=== PATIENT | male | born 2000 | race African-American/Black ===

== ENCOUNTER 2020-07-10 16:15 | Observation (INO) | payer OTHER ==
[2020-07-10 16:55] LABS: ABSOLUTE BASOPHILS # (AUTO) 0.1 10^3/uL (0.0-0.2); ABSOLUTE EOSINOPHILS # (AUTO) 0.1 10^3/uL (0.0-0.6); ABSOLUTE LYMPHOCYTES (AUTO) 2.8 10^3/uL (0.5-4.7); ABSOLUTE MONOCYTES (AUTO) 0.4 10^3/uL (0.1-1.4); ABSOLUTE NEUT (AUTO) 2.7 10^3/uL (1.7-8.2); BASOPHILS % (AUTO) 1.7 % (0-2); EOSINOPHILS % (AUTO) 1.6 % (0-6); HEMATOCRIT 40.2 % (37.9-51.0); HEMOGLOBIN 13.1 g/dL (13.5-17.0); LYMPHOCYTES % (AUTO) 45.3 % (13-45); MEAN CORPUSCULAR HEMOGLOBIN 26.6 pg (27.0-33.4); MEAN CORPUSCULAR HGB CONC 32.7 g/dL (32.0-36.0); MEAN CORPUSCULAR VOLUME 81 fl (80-97); MONOCYTES % (AUTO) 7.3 % (3-13); PLATELET COUNT 257 10^3/uL (150-450); RED BLOOD COUNT 4.94 10^6/uL (4.35-5.55); RED CELL DISTRIBUTION WIDTH 13.5 % (11.5-14.0); SEGMENTED NEUTROPHILS % (AUTO) 44.1 % (42-78); TOTAL CELLS COUNTED % (AUTO) 100 %; WHITE BLOOD COUNT 6.1 10^3/uL (4.0-10.5)
[2020-07-10] MEDS ORDERED: NORMAL SALINE 1000 ML 1,000 ML IV ONE (16:55)
--- NOTE | 2020-07-10 16:58 | ER Document Report ---
ED General - General Chief Complaint: Palpitations Stated Complaint: PALPITATIONS Primary Care Provider: AMILCAR ROOT MD [COMMUNITY BASED STAFF] - Follow up as needed Mode of Arrival: Ambulatory Information source: Patient, Relative Notes: Patient is a 19-year-old male presenting to the emergency department chief complaint of palpitations/racing heart. Patient states about a week or so ago he did a double shot of espresso since that point in time he has had palpitations and tachycardia worse today. Patient denies drugs alcohol or tobacco. Patient denies travel history trauma history or obvious sick contacts. At this time patient denies nausea vomiting or diarrhea there is no shortness of breath. Grandmother at bedside states no one in the family has heart issues. TRAVEL OUTSIDE OF THE [place] IN LAST 30 DAYS: No - HPI Onset: Last week Onset/Duration: Persistent, Worse Quality of pain: Achy Severity: Mild Pain Level: 1 Associated symptoms: None Exacerbated by: Denies Relieved by: Denies Similar symptoms previously: Yes Recently seen / treated by doctor: No - Related Data Allergies/Adverse Reactions: No Known Allergies Allergy (Verified 07/10/20 17:19) Past Medical History - General Information source: Patient, Relative - Social History Smoking Status: Unknown if Ever Smoked Chew tobacco use (# tins/day): No Frequency of alcohol use: Rare Drug Abuse: None Lives with: Family Family History: None Patient has suicidal ideation: No Patient has homicidal ideation: No - Medical History Medical History: Negative Surgical Hx: Negative Review of Systems - Review of Systems Notes: REVIEW OF SYSTEMS: CONSTITUTIONAL : Denies fever, chills, or sweats. Denies recent illness. EENT: Denies eye, ear, throat, or mouth pain or symptoms. Denies nasal or sinus congestion. CARDIOVASCULAR: Per HPI RESPIRATORY: Denies cough, cold, or chest congestion. Denies shortness of breath, difficulty breathing, or wheezing. GASTROINTESTINAL: Denies abdominal pain. Denies nausea, vomiting, or diarrhea. Denies constipation. GENITOURINARY: Denies difficulty urinating, painful urination, burning, frequency, or blood in urine. MUSCULOSKELETAL: Denies neck or back pain or joint pain or swelling. SKIN: Denies rash or skin lesions. HEMATOLOGIC : Denies easy bruising or bleeding. NEUROLOGICAL: Denies altered mental status or loss of consciousness. Denies headache. Denies weakness or paralysis or loss of use of either side. Denies problems with gait or speech. Denies sensory or motor loss. PSYCHIATRIC: Denies suicidal or homicidal ideations 10 Systems are negative unless otherwise specified above Physical Exam - Vital signs Vitals: Temp Pulse Resp BP Pulse Ox 98.2 F 143 H 16 137/62 H 99 07/10/20 16:28 07/10/20 16:28 07/10/20 16:28 07/10/20 16:28 07/10/20 16:28 - Notes Notes: PHYSICAL EXAMINATION: GENERAL: Well-appearing, well-nourished and in no acute distress. HEAD: Atraumatic, normocephalic. EYES: Pupils equal round and reactive to light, extraocular movements intact, sclera anicteric, conjunctiva are normal. ENT: nares patent, oropharynx clear without exudates. Moist mucous membranes. NECK: Normal range of motion, supple without lymphadenopathy, no appreciable JVD LUNGS: Lungs clear to auscultation bilaterally and equal. No wheezes rales or rhonchi. HEART: Tachycardic, rate and rhythm without murmurs ABDOMEN: Soft, nontender, normal bowel sounds. No guarding, no rebound. No masses appreciated. EXTREMITIES: Active full range of motion, no pitting or edema. No cyanosis. 2+ pulses x4 no calf pain no Homans sign NEUROLOGICAL: No focal neurological deficits. Moves all extremities spontaneously and on command. SKIN: Warm, Dry, and intact. Normal turgor, no rashes or lesions noted. Course - Re-evaluation Re-evalutation: 07/10/20 20:13 Patient has been maintained on a advanced research programs director the entire time in the emergency department. Patient has remained stable without any change in cardiac activity or condition. After reviewing EKG chest x-ray laboratory studies I did discuss the patient's case and condition with cardiology on-call and the recommendation was to administer adenosine because of what appeared to be atrial flutter on the patient's second EKG. After giving the initial dose of 6 mg IV rapid push there was very little change however second bolus of adenosine 6 mg rapid IV push did elicit a temporary slowdown where A. fib/a flutter was much m ore visible. After speaking with cardiology again the request is metoprolol 25 mg p.o. every 6 hours and Eliquis 5 mg p.o. twice daily. The patient will be admitted under the hospitalist service and will be evaluated for possible cardioversion by cardiology in the morning. I did explain this at great length with the patient he is understanding and agreeable. I spoke with the hospitalist sharepoint solutions architect and he is agreeable with admission and will see the patient once he reaches the floor. - Vital Signs Vital signs: Temp Pulse Resp BP Pulse Ox 98.2 F 143 H 18 109/59 L 100 07/10/20 17:00 07/10/20 16:28 07/10/20 19:00 07/10/20 18:00 07/10/20 18:01 - Laboratory Result Diagrams: 07/10/20 16:41 07/10/20 16:41 Laboratory results interpreted by me: 07/10/20 07/10/20 07/10/20 16:41 16:41 18:38 Hgb 13.1 L MCH 26.6 L Lymph % (Auto) 45.3 H BUN 22 H Creatine Kinase 413 H Urine Urobilinogen 2.0 H - Diagnostic Test Radiology reviewed: Reports reviewed - EKG Interpretation by [facility] EKG shows normal: Sinus rhythm Rate: Tachycardia Rhythm: NSR When compared to previous EKG there are: Previous EKG unavailable Additional EKG results interpreted by me: 07/10/20 20:16 Second EKG demonstrates a rate of 137 bpm there is question whether this is SVT or atrial flutter. Next EKG after 2 boluses of 6 mg each of adenosine demonstrates atrial fibrillation rate of 117 bpm however this does appear more like atrial flutter with a variable conduction. Critical Care Note - Critical Care Note Total time excluding time spent on procedures (mins): 40 Comments: Please allow 45 minutes of critical care time spent obtaining history from patient or surrogate, discussions with consultants, development of treatment plan with patient or surrogate, evaluation of patient's response to treatment, examination of patient. This also includes ordering and reviewing laboratory, EKG and / or radiologic studies, performing and reassessing treatments and interventions as well as reviewing previous visits and old charts. This is exclusive of separately billable procedures. Discharge - Discharge Clinical Impression: Atrial flutter Qualifiers: Atrial flutter type: unspecified Qualified Code(s): I48.92 - Unspecified atrial flutter Condition: Stable Disposition: ADMITTED OBSERVATION Admitting Provider: Greg (Hospitalist) Unit Admitted: Telemetry Referrals: AMILCAR ROOT MD [COMMUNITY BASED STAFF] - Follow up as needed
--- NOTE | 2020-07-10 17:00 | RADIOLOGY REPORT (SQ) ---
EXAM DESCRIPTION: CHEST SINGLE VIEW IMAGES COMPLETED DATE/TIME: 07/10/2020 4:52 pm REASON FOR STUDY: palpations COMPARISON: None. EXAM PARAMETERS: NUMBER OF VIEWS: One view. TECHNIQUE: Single frontal radiographic view of the chest acquired. RADIATION DOSE: NA LIMITATIONS: None. FINDINGS: LUNGS AND PLEURA: No opacities, masses or pneumothorax. No pleural effusion. MEDIASTINUM AND HILAR STRUCTURES: No masses. Contour normal. HEART AND VASCULAR STRUCTURES: Heart normal in size. Normal vasculature. BONES: No acute findings. HARDWARE: None in the chest. OTHER: No other significant finding. IMPRESSION: NO ACUTE RADIOGRAPHIC FINDING IN THE CHEST. TECHNICAL DOCUMENTATION: JOB ID: [id number] 2010 [employer]- All Rights Reserved Reading location - IP/workstation name: [email or web address]
[2020-07-10 17:12] LABS: ALBUMIN 4.5 g/dL (3.5-5.0); ALKALINE PHOSPHATASE 53 U/L (38-126); ANION GAP 11 (5-19); ASPARTATE AMINO TRANSFERASE 29 U/L (17-59); BILIRUBIN,DIRECT 0.2 mg/dL (0.0-0.4); BILIRUBIN,TOTAL 0.6 mg/dL (0.2-1.3); BLOOD UREA NITROGEN 22 mg/dL (7-20); CALCIUM 9.8 mg/dL (8.4-10.2); CARBON DIOXIDE 25 mmol/L (22-30); CHLORIDE 104 mmol/L (98-107); CREATINE KINASE 413 U/L (55-170); GLUCOSE 105 mg/dL (75-110); POTASSIUM 4.2 mmol/L (3.6-5.0); TOTAL PROTEIN 7.1 g/dL (6.3-8.2)
[2020-07-10 17:22] LABS: CREATINE KINASE MB 3.19 ng/mL (<4.55)
[2020-07-10 17:23] LABS: TROPONIN I < 0.012 ng/mL
[2020-07-10 18:56] LABS: APPEARANCE,URINE CLEAR; BILIRUBIN,URINE NEGATIVE (NEGATIVE); COLOR,URINE YELLOW; GLUCOSE, URINE NEGATIVE (NEGATIVE); KETONES,URINE NEGATIVE (NEGATIVE); LEUKOCYTE ESTERASE,URINE NEGATIVE (NEGATIVE); NITRITE,URINE NEGATIVE (NEGATIVE); PROTEIN,URINE NEGATIVE (NEGATIVE); URINE SPECIFIC GRAVITY 1.025
[2020-07-10 19:14] LABS: URINE AMPHETAMINES SCREEN NEGATIVE; URINE BARBITURATES SCREEN NEGATIVE; URINE BENZODIAZEPINES SCREEN NEGATIVE; URINE COCAINE SCREEN NEGATIVE; URINE MARIJUANA (THC) SCREEN NEGATIVE; URINE METHADONE SCREEN NEGATIVE; URINE PHENCYCLIDINE SCREEN NEGATIVE
[2020-07-10] MEDS ORDERED: ADENOSINE INJ/PF 6 MG/2 ML SDV IV ONE ×3 (19:29→20:57)
[2020-07-10] MEDS ORDERED: METOPROLOL TARTRATE 25 MG TABLET PO ONE (20:12)
[2020-07-10] MEDS ORDERED: APIXABAN 5 MG TABLET PO ONE (20:12)
--- NOTE | 2020-07-10 20:18 | EKG REPORT ---
SEVERITY:- ABNORMAL ECG - A-FLUTTER W/ VARIED AV BLOCK, A-RATE 283 PROLONGED QT INTERVAL : Confirmed by: Dustin Klein MD 10-Jul-2020 20:18:15
--- NOTE | 2020-07-10 20:19 | EKG REPORT ---
SEVERITY:- ABNORMAL ECG - ATRIAL FLUTTER 143/MIN : Confirmed by: Dustin Klein MD 10-Jul-2020 20:19:03
[2020-07-10 20:26] LABS: FREE T4 (FREE THYROXINE) 0.91 ng/dL (0.78-2.19)
[2020-07-10 20:40] LABS: THYROID STIMULATING HORMONE 1.23 uIU/mL (0.47-4.68)
[2020-07-10] MEDS ORDERED: MAGNESIUM HYDROXIDE SUSP 30 ML UDCUP PO PRN (20:45)
[2020-07-10] MEDS ORDERED: DEXTROSE 5%-LACTATED RINGERS 1,000 ML IV PRN (20:45)
[2020-07-10] MEDS ORDERED: MAG HYDROX/AL HYDROX/SIMETH SUSP 30 ML UDCUP PO PRN (20:45)
[2020-07-10] MEDS ORDERED: ONDANSETRON HCL INJ/PF 4 MG/2 ML SDV IV PRN (20:45)
[2020-07-10] MEDS ORDERED: GUAIFENESIN SYRP 200 MG/10 ML UDC PO PRN (20:50)
[2020-07-10] MEDS ORDERED: ACETAMINOPHEN 325 MG TABLET PO PRN (20:50)
[2020-07-10] MEDS ORDERED: LORAZEPAM INJ 2 MG/1 ML VIAL IV PRN (20:50)
[2020-07-10] MEDS ORDERED: MELATONIN 5 MG TABLET PO PRN (20:50)
[2020-07-10] MEDS ORDERED: MORPHINE SULFATE 10 MG/ML INJ IV PRN ×4 (20:50→21:02)
[2020-07-10] MEDS ORDERED: ACETAMINOPHEN 650 MG SUPP.RECT PR PRN (20:50)
[2020-07-10] MEDS: FAMOTIDINE 20 MG TABLET PO SCH (22:21)
[2020-07-10 22:33] LABS: TROPONIN I < 0.012 ng/mL
[2020-07-11] MEDS: METOPROLOL TARTRATE 25 MG TABLET PO SCH ×4 (00:20→17:29)
--- NOTE | 2020-07-11 05:46 | PDOC H&P ---
History of Present Illness Admission Date/PCP: 07/10/2020 22:30 AMILCAR ROOT MD Patient complains of: Palpitations History of Present Illness: VIVIAN MAKI is a 19 year old male who presented to the emergency room with a one-week history of heart palpitations. He admits suddenly developing pal pitations of his heart after drinking a double shot of espresso 1 week ago. Palpitations have been constant since onset and have been accompanied by a rapid heart rate. He admits the palpitations have been mild until today where they have become somewhat more severe and his tachycardia has also worsened. He denies other associated or accompanying signs and symptoms. He denies prior similar episodes. He has not identified any additional aggravating or ameliorating factors for his palpitations. In the emergency room he was found to have atrial flutter/fibrillation and was treated with oral metoprolol and oral Eliquis at the direction of Dr. Tristen Siddiqi who was consulted for cardiology evaluation by the emergency room physician. Patient was subsequently admitted observation status for further evaluation and treatment with Dr. Siddiqi providing cardiology consultation and therapy. Past Medical History Cardiac Medical History: Denies: Atrial Fibrillation, Coronary Artery Disease, DVT, Hypertension, Pulmonary Embolism Pulmonary Medical History: Denies: Asthma, Chronic Obstructive Pulmonary Disease (COPD) EENT Medical History: Denies: Cataracts, Ears - Hearing aids Neurological Medical History: Denies: Migraine, Multiple Sclerosis, Seizures Endocrine Medical History: Denies: Diabetes Mellitus Type 1, Diabetes Mellitus Type 2, Hyperthyroidism, Hypothyroidism, Obesity Renal/ Medical History: Denies: Chronic Kidney Disease, Nephrolithiasis Malignancy Medical History: Reports: None GI Medical History: Denies: Cirrhosis, Hepatitis, Peptic Ulcer Disease Musculoskeltal Medical History: Denies: Arthritis, Gout Skin Medical History: Denies: Eczema, Psoriasis Psychiatric Medical History: Denies: Alcohol Dependency, Substance Abuse, Tobacco Dependency Traumatic Medical History: Reports: None Hematology: Denies: Anemia, Bleeding Tendencies Infectious Medical History: Reports: None Past Surgical History Past Surgical History: Reports: None Social History Information Source: Patient Lives with: Family Smoking Status: Never Smoker Electronic Cigarette use?: No Frequency of Alcohol Use: Occasional Hx Recreational Drug Use: No Drugs: None Hx Prescription Drug Abuse: No - Advance Directive Resuscitation Status: Full Code Surrogate healthcare decision maker:: Megan Gu Family History Family History: DM, Hypertension. denies: CAD, Malignancy Parental Family History Reviewed: Yes Children Family History Reviewed: No Sibling(s) Family History Reviewed.: Yes Medication/Allergy Home Medications: No Home Medications 07/10/20 Allergies/Adverse Reactions: No Known Allergies Allergy (Verified 07/10/20 17:19) Review of Systems Constitutional: ABSENT: chills, fever(s) Eyes: ABSENT: visual disturbances, other - Eye pain Ears: ABSENT: hearing changes, other - Ear pain Nose, Mouth, and Throat: ABSENT: headache(s), sore throat Cardiovascular: PRESENT: as per HPI, palpitations. ABSENT: chest pain, dyspnea on exertion Respiratory: ABSENT: cough, dyspnea Gastrointestinal: ABSENT: abdominal pain, constipation, diarrhea, nausea, vomiting Genitourinary: ABSENT: dysuria, hematuria Musculoskeletal: ABSENT: back pain, joint swelling, muscle weakness Integumentary: ABSENT: pruritus, rash Neurological: ABSENT: confusion, convulsions, focal weakness, memory loss, syncope Psychiatric: ABSENT: anxiety, depression Endocrine: ABSENT: cold intolerance, heat intolerance Hematologic/Lymphatic: ABSENT: easy bleeding, easy bruising Allergic/Immunologic: ABSENT: seasonal rhinorrhea Physical Exam Vital Signs: Temp Pulse Resp BP Pulse Ox 98.2 F 143 H 18 109/59 L 100 07/10/20 17:00 07/10/20 16:28 07/10/20 19:00 07/10/20 18:00 07/10/20 18:01 Intake & Output 07/08/20 07/09/20 07/10/20 23:59 23:59 23:59 Intake Total 1000 Balance 1000 Weight 78.2 kg General appearance: PRESENT: no acute distress, cooperative, well-developed Head exam: PRESENT: atraumatic, normocephalic Eye exam: PRESENT: conjunctiva pink. ABSENT: conjunctival injection, scleral icterus Ear exam: PRESENT: normal external ear exam. ABSENT: bleeding, drainage Mouth exam: PRESENT: dry mucosa, neck supple Neck exam: ABSENT: thyromegaly, tracheal deviation Respiratory exam: PRESENT: clear to auscultation anna, symmetrical, unlabored Cardiovascular exam: PRESENT: irregular rhythm - Irregularly irregular rate and rhythm. ABSENT: clicks, gallop, rubs Pulses: PRESENT: normal radial pulses, normal dorsalis pedis pul Vascular exam: PRESENT: normal capillary refill. ABSENT: pallor GI/Abdominal exam: PRESENT: normal bowel sounds, soft. ABSENT: tenderness Rectal exam: PRESENT: deferred Extremities exam: ABSENT: joint swelling, pedal edema Musculoskeletal exam: ABSENT: deformity, dislocation Neurological exam: PRESENT: alert, oriented to person, oriented to place, oriented to time, oriented to situation, CN II-XII grossly intact. ABSENT: motor sensory deficit Psychiatric exam: PRESENT: appropriate affect, normal mood Skin exam: PRESENT: dry, intact, warm. ABSENT: jaundice, rash, urticaria Results Laboratory Results: 07/10/20 16:41 07/10/20 16:41 07/10/20 07/10/20 07/10/20 16:41 16:41 18:38 WBC 6.1 RBC 4.94 Hgb 13.1 L Hct 40.2 MCV 81 MCH 26.6 L MCHC 32.7 RDW 13.5 Plt Count 257 Seg Neutrophils % 44.1 Sodium 139.8 Potassium 4.2 Chloride 104 Carbon Dioxide 25 Anion Gap 11 BUN 22 H Creatinine 1.14 Est GFR ( Amer) > 60 Glucose 105 Calcium 9.8 Total Bilirubin 0.6 AST 29 Alkaline Phosphatase 53 Total Protein 7.1 Albumin 4.5 Urine Color YELLOW Urine Appearance CLEAR Urine pH 6.0 Ur Specific [place] 1.025 Urine Protein NEGATIVE Urine Glucose (UA) NEGATIVE Urine Ketones NEGATIVE Urine Blood NEGATIVE Urine Nitrite NEGATIVE Ur Leukocyte Esterase NEGATIVE Urine WBC (Auto) 1 Urine RBC (Auto) 0 07/10/20 07/10/20 16:41 16:41 Creatine Kinase 413 H CK-MB (CK-2) 3.19 Troponin I < 0.012 Impressions: Chest X-Ray 07/10/20 16:40 IMPRESSION: NO ACUTE RADIOGRAPHIC FINDING IN THE CHEST. Assessment and Plan - Diagnosis (1) Atrial fibrillation/flutter Is this a current diagnosis for this admission?: Yes (2) Heart palpitations Is this a current diagnosis for this admission?: Yes (3) Tachycardia Is this a current diagnosis for this admission?: Yes (4) Elevated creatine kinase level Is this a current diagnosis for this admission?: Yes - Plan Summary Summary: Patient will be admitted observation status on 10/23 supportive and symptomatic cares. Dr. Tristen Siddiqi will be consulted for cardiology evaluation and treatment. Patient will receive Ativan 1 mg IV every 4 hours as needed for anxiety or restlessness. He will receive morphine sulfate 2 to 4 mg IV every 2 hours as needed for pain. He will be continued on Lopressor 25 mg p.o. every 6 hours and Eliquis 5 mg p.o. twice daily at the suggestion of Dr. Siddiqi. Dr. Siddiqi plans to cardiovert the patient once he has been stabilized on the aforementioned medical regimen. Patient will be treated with a cardiac diet. CBCs, metabolic profiles and additional laboratory and/or radiographic graphic evaluations will be obtained as needed. - Time Time Spent with patient: 15-24 minutes Medications reviewed and adjusted accordingly: No - No home meds Anticipated Discharge Disposition: Home, Self Care Anticipated Discharge Timeframe: within 36 hours - Inpatient Certification Based on my medical assessment, after consideration of the patient's comorbidities, presenting symptoms, or acuity I expect that the services needed warrant INPATIENT care.: No I certify that my determination is in accordance with my understanding of Medicare's requirements for reasonable and necessary INPATIENT services [42 CFR 412.3e].: No Medical Necessity: Need For Continuous Telemetry Monitoring, Risk of Complication if Not Cared For in Hospital
[2020-07-11 08:12] LABS: HEMATOCRIT 40.8 % (37.9-51.0); HEMOGLOBIN 13.5 g/dL (13.5-17.0); MEAN CORPUSCULAR HEMOGLOBIN 26.9 pg (27.0-33.4); MEAN CORPUSCULAR VOLUME 82 fl (80-97); PLATELET COUNT 217 10^3/uL (150-450); RED CELL DISTRIBUTION WIDTH 13.5 % (11.5-14.0); WHITE BLOOD COUNT 5.1 10^3/uL (4.0-10.5)
[2020-07-11 08:45] LABS: BLOOD UREA NITROGEN 15 mg/dL (7-20); CALCIUM 9.3 mg/dL (8.4-10.2); CARBON DIOXIDE 29 mmol/L (22-30); CHLORIDE 106 mmol/L (98-107); GLUCOSE 97 mg/dL (75-110); POTASSIUM 4.7 mmol/L (3.6-5.0)
--- NOTE | 2020-07-11 08:48 | PDOC CONSULTATION ---
Consultation Consult Date: 07/11/20 Attending physician:: CHRISTINE LEVI Provider Consulted: MICH MADRID Consult reason:: Atrial fibrillation History of Present Illness Admission Date/PCP: 07/10/20 20:26 History of Present Illness: VIVIAN MAKI is a 19 year old male without known medical problems, non-smoker, no family history of premature coronary artery disease, denies the use of stimulants/illegal drugs/workout supplements who is consulted to our service for evaluation of atrial flutter. The patient is very athletic, plays soccer regularly and physically trains very frequently during the week without any symptoms. Approximately 1.5 to 2 weeks ago he drank coffee with 2 shots of espresso in it and 2 days later began with palpitations and racing heart. These symptoms did not hyun and he decided to seek medical attention. In our emergency room he was found to have an elevated heart rate and was given 2 doses of adenosine revealing the presence of atrial fibrillation. He was begun on Lopressor 25 mg every 6 hours with good response. This morning he has no cardiovascular complaints and feels much better. He specifically denies palpitations, racing heart, chest pain, shortness of breath, MAGANA, PND, lower extremity edema, syncope and presyncope. His telemetry demonstrates atrial flutter with variable AV block with heart rates below 110 bpm. Of note, he has only received 2 doses of beta-jagdeep. Physical exam on 07/11/2020: GENERAL: Pleasant and conversational. Laying in bed comfortably. Oriented x3 with normal mood. Not in acute distress. Well groomed and well developed. HEENT: Normocephalic, atraumatic. Pupils equal. Sclerae anicteric. Oropharynx moist. NECK: No JVD. No carotid bruits. LUNGS: Clear to auscultation bilaterally. Normal respiratory effort without the use of accessory muscles or intercostal retractions. CARDIOVASCULAR: R irregularly irregular rate and rhythm, normal S1 and S2 without murmurs, rubs, or gallops. PMI not displaced. EXTREMITIES: No edema, no cyanosis, no clubbing. +2 pulses femoral and pedal pulses bilaterally. SKIN: No lesions or rashes. MUSCULOSKELETAL: No chest tenderness to palpation. NEUROLOGIC: Nonfocal. No gross sensory or motor deficits bilateral upper or lower extremities. Past Medical History Cardiac Medical History: Denies: Atrial Fibrillation, Coronary Artery Disease, DVT, Hypertension, Pulmonary Embolism Pulmonary Medical History: Denies: Asthma, Chronic Obstructive Pulmonary Disease (COPD) EENT Medical History: Denies: Cataracts, Ears - Hearing aids Neurological Medical History: Denies: Migraine, Multiple Sclerosis, Seizures Endocrine Medical History: Denies: Diabetes Mellitus Type 1, Diabetes Mellitus Type 2, Hyperthyroidism, Hypothyroidism, Obesity Renal/ Medical History: Denies: Chronic Kidney Disease, Nephrolithiasis Malignancy Medical History: Reports: None GI Medical History: Denies: Cirrhosis, Hepatitis, Peptic Ulcer Disease Musculoskeltal Medical History: Denies: Arthritis, Gout Skin Medical History: Denies: Eczema, Psoriasis Psychiatric Medical History: Denies: Alcohol Dependency, Depression, Substance Abuse, Tobacco Dependency Traumatic Medical History: Reports: None Hematology: Denies: Anemia, Bleeding Tendencies Infectious Medical History: Reports: None Past Surgical History Past Surgical History: Reports: None Social History Lives with: Family Smoking Status: Never Smoker Electronic Cigarette use?: No Frequency of Alcohol Use: None Hx Recreational Drug Use: No Drugs: None Hx Prescription Drug Abuse: No - Advance Directive Resuscitation Status: Full Code Family History Family History: DM, Hypertension. denies: CAD, Malignancy Parental Family History Reviewed: Yes Children Family History Reviewed: Yes Sibling(s) Family History Reviewed.: Yes Medication/Allergy Home Medications: No Home Medications 07/10/20 Allergies/Adverse Reactions: No Known Allergies Allergy (Verified 07/10/20 17:19) Physical Exam Vital Signs: Temp Pulse Resp BP Pulse Ox 97.7 F 65 16 118/59 L 100 07/11/20 03:39 07/11/20 03:39 07/11/20 03:39 07/11/20 03:39 07/11/20 03:39 Intake & Output 07/09/20 07/10/20 07/11/20 06:59 06:59 06:59 Intake Total 1000 Balance 1000 Weight 78.2 kg Results Laboratory Results: 07/10/20 16:41 07/10/20 16:41 07/10/20 07/10/20 07/10/20 16:41 16:41 16:41 WBC 6.1 RBC 4.94 Hgb 13.1 L Hct 40.2 MCV 81 MCH 26.6 L MCHC 32.7 RDW 13.5 Plt Count 257 Seg Neutrophils % 44.1 Sodium 139.8 Potassium 4.2 Chloride 104 Carbon Dioxide 25 Anion Gap 11 BUN 22 H Creatinine 1.14 Est GFR ( Amer) > 60 Glucose 105 Calcium 9.8 Total Bilirubin 0.6 AST 29 Alkaline Phosphatase 53 Total Protein 7.1 Albumin 4.5 TSH 1.23 Free T4 0.91 Urine Color Urine Appearance Urine pH Ur Specific [place] Urine Protein Urine Glucose (UA) Urine Ketones Urine Blood Urine Nitrite Ur Leukocyte Esterase Urine WBC (Auto) Urine RBC (Auto) 07/10/20 18:38 WBC RBC Hgb Hct MCV MCH MCHC RDW Plt Count Seg Neutrophils % Sodium Potassium Chloride Carbon Dioxide Anion Gap BUN Creatinine Est GFR ( Amer) Glucose Calcium Total Bilirubin AST Alkaline Phosphatase Total Protein Albumin TSH Free T4 Urine Color YELLOW Urine Appearance CLEAR Urine pH 6.0 Ur Specific [place] 1.025 Urine Protein NEGATIVE Urine Glucose (UA) NEGATIVE Urine Ketones NEGATIVE Urine Blood NEGATIVE Urine Nitrite NEGATIVE Ur Leukocyte Esterase NEGATIVE Urine WBC (Auto) 1 Urine RBC (Auto) 0 07/10/20 07/10/20 07/10/20 16:41 16:41 21:53 Creatine Kinase 413 H 329 H CK-MB (CK-2) 3.19 Troponin I < 0.012 07/10/20 21:53 Creatine Kinase CK-MB (CK-2) 2.60 Troponin I < 0.012 Impressions: Chest X-Ray 07/10/20 16:40 IMPRESSION: NO ACUTE RADIOGRAPHIC FINDING IN THE CHEST. 07/11/20 07:55 MCV 82 fl (80-97) 07/11/20 07:55 MCH 26.9 pg (27.0-33.4) L 07/11/20 07:55 MCHC 33.0 g/dL (32.0-36.0) 07/11/20 07:55 RDW 13.5 % (11.5-14.0) 07/11/20 07:55 Seg Neutrophils % 44.1 % (42-78) 07/10/20 16:41 Chloride 104 mmol/L (98-107) 07/10/20 16:41 Carbon Dioxide 25 mmol/L (22-30) 07/10/20 16:41 Anion Gap 11 (5-19) 07/10/20 16:41 Est GFR ( Amer) > 60 (>60) 07/10/20 16:41 Glucose 105 mg/dL (75-110) 07/10/20 16:41 Calcium 9.8 mg/dL (8.4-10.2) 07/10/20 16:41 Total Bilirubin 0.6 mg/dL (0.2-1.3) 07/10/20 16:41 AST 29 U/L (17-59) 07/10/20 16:41 Alkaline Phosphatase 53 U/L (38-126) 07/10/20 16:41 Total Protein 7.1 g/dL (6.3-8.2) 07/10/20 16:41 Albumin 4.5 g/dL (3.5-5.0) 07/10/20 16:41 TSH 1.23 uIU/mL (0.47-4.68) 07/10/20 16:41 Free T4 0.91 ng/dL (0.78-2.19) 07/10/20 16:41 Urine Color YELLOW 07/10/20 18:38 Urine Appearance CLEAR 07/10/20 18:38 Urine pH 6.0 (5.0-9.0) 07/10/20 18:38 Ur Specific [place] 1.025 07/10/20 18:38 Urine Protein NEGATIVE mg/dL (NEGATIVE) 07/10/20 18:38 Urine Glucose (UA) NEGATIVE mg/dL (NEGATIVE) 07/10/20 18:38 Urine Ketones NEGATIVE mg/dL (NEGATIVE) 07/10/20 18:38 Urine Blood NEGATIVE (NEGATIVE) 07/10/20 18:38 Urine Nitrite NEGATIVE (NEGATIVE) 07/10/20 18:38 Ur Leukocyte Esterase NEGATIVE (NEGATIVE) 07/10/20 18:38 Urine WBC (Auto) 1 /HPF 07/10/20 18:38 Urine RBC (Auto) 0 /HPF 07/10/20 18:38 07/10/20 07/10/20 07/10/20 16:41 16:41 21:53 Creatine Kinase 413 H 329 H CK-MB (CK-2) 3.19 Troponin I < 0.012 07/10/20 21:53 Creatine Kinase CK-MB (CK-2) 2.60 Troponin I < 0.012 Current Medication List Generic Name Dose Route Start Last Admin Trade Name Freq PRN Reason Stop Dose Admin Acetaminophen 650 mg 07/10/20 20:50 Tylenol 325 Mg Tablet PO 08/09/20 20:49 Q4HP PRN For headache, pain or fever Acetaminophen 650 mg 07/10/20 20:50 Tylenol 650 Mg Supp TX 08/09/20 20:49 Q4HP PRN For headache, pain or fever Al Hydrox/Mg Hydrox/Simethicone 30 ml 07/10/20 20:45 Maalox Plus Susp 30 Udcup PO 08/09/20 20:44 Q6HP PRN HEARTBURN Apixaban 5 mg 07/11/20 10:00 Eliquis 5 Mg Tablet PO 08/10/20 09:59 BID DARIAN Docusate Sodium 100 mg 07/11/20 10:00 Colace 100 Mg Capsule PO 08/10/20 09:59 BID DARIAN Famotidine 20 mg 07/10/20 22:00 07/10/20 22:21 Pepcid 20 Mg Tablet PO 08/09/20 21:59 20 mg Q12 DARIAN Administration Guaifenesin 200 mg 07/10/20 20:50 Robitussin Syrup 200 Mg/10 Ml Ud Cup PO 08/09/20 20:49 Q4HP PRN COUGH Dextrose/Lactated Ringer's 1,000 mls @ 167 mls/hr 07/10/20 20:45 07/11/20 06:46 D5lr 1000 Ml Iv Soln IV 08/09/20 20:44 167 mls/hr CONTINUOUS PRN Administration THIS MED IS NOT "PRN" Lorazepam 1 mg 07/10/20 20:50 Ativan Inj 2 Mg/1 Ml Vial IV 07/17/20 20:49 Q4HP PRN ANXIETY/AGITATION Magnesium Hydroxide 30 ml 07/10/20 20:45 Milk Of Magnesia 30 Ml Udcup PO 08/09/20 20:44 DAILYP PRN FOR CONSTIPATION Melatonin 5 mg 07/10/20 20:50 Melatonin 5 Mg Tablet PO 08/09/20 20:49 HSP PRN SLEEP OR INSOMNIA Metoprolol Tartrate 25 mg 07/11/20 00:00 07/11/20 05:19 Lopressor 25 Mg Tablet PO 08/10/20 00:00 25 mg Q6 DARIAN Administration Morphine Sulfate 2 mg 07/10/20 21:02 Morphine 10 Mg/Ml Inj IV 07/17/20 21:01 Q2HP PRN PAIN SCALE 2 Morphine Sulfate 3 mg 07/10/20 21:02 Morphine 10 Mg/Ml Inj IV 07/17/20 21:01 Q2HP PRN PAIN SCALE 3-4 Morphine Sulfate 4 mg 07/10/20 21:02 Morphine 10 Mg/Ml Inj IV 07/17/20 21:01 Q2HP PRN PAIN SCALE 5 Ondansetron HCl 4 mg 07/10/20 20:45 Zofran Inj/Pf 4 Mg/2 Ml Sdv IV 08/09/20 20:44 Q4HP PRN FOR NAUSEA/VOMITING Sodium Chloride 2.5 ml 07/10/20 22:00 07/11/20 05:19 Saline Flush 2.5 Ml Monoject Prefil Syrin IV 08/09/20 21:59 2.5 ml Q8 DARIAN Administration Discontinued Medications Generic Name Dose Route Start Last Admin Trade Name Freq PRN Reason Stop Dose Admin Adenosine 6 mg 07/10/20 19:29 07/10/20 19:53 Adenocard Inj/Pf 6 Mg/2 Ml Sdv IV 07/10/20 19:30 6 mg NOW ONE Administration Adenosine 6 mg 07/10/20 20:10 07/10/20 19:58 Adenocard Inj/Pf 6 Mg/2 Ml Sdv IV 07/10/20 20:11 6 mg NOW ONE Administration Adenosine Confirm 07/10/20 20:57 07/10/20 21:43 Adenocard Inj/Pf 6 Mg/2 Ml Sdv Administered 07/10/20 20:58 Not Given Dose 6 mg IV .STK-MED ONE Apixaban 5 mg 07/10/20 20:12 07/10/20 21:43 Eliquis 5 Mg Tablet PO 07/10/20 20:13 5 mg NOW ONE Administration Sodium Chloride 1,000 mls @ 0 mls/hr 07/10/20 16:55 07/10/20 18:56 Nacl 0.9% 1000 Ml Iv Soln IV 07/10/20 16:56 Infused BOLUS ONE Infusion Wide Open Metoprolol Tartrate 25 mg 07/10/20 20:12 07/10/20 21:43 Lopressor 25 Mg Tablet PO 07/10/20 20:13 25 mg NOW ONE Administration Assessment & Plan - Diagnosis (1) Atrial fibrillation/flutter Is this a current diagnosis for this admission?: Yes (2) Atrial flutter Qualifiers: Atrial flutter type: unspecified Qualified Code(s): I48.92 - Unspecified atrial flutter Is this a current diagnosis for this admission?: Yes Plan: 19-year-old male with new onset of atrial flutter of unclear etiology. The patient is currently heart rate controlled after only 2 doses of metoprolol p.o. He denied the use of illegal substances as well as workout supplements. The etiology of his atrial flutter is unclear at this point however he is hemodynamically stable and with normal cardiac enzymes. I discussed the case w ith Dr. Luis Stevens, barrel racer, who agreed with me with anticoagulation and will set the patient up for outpatient NINA guided cardioversion on 07/15/2020. Recommendations: -Echocardiogram today to assess for structural heart disease. -If echocardiogram is normal the patient may be discharged home from the cardiovascular standpoint with NINA guided cardioversion as scheduled. -May change Lopressor to 50 mg p.o. twice daily to improve compliance. -Continue with Eliquis 5 mg twice daily. -I will review his echocardiogram as soon as it becomes available, if normal we will sign off the case for now.
[2020-07-11 08:55] LABS: CREATINE KINASE MB 1.78 ng/mL (<4.55)
[2020-07-11 08:59] LABS: ANION GAP 5 (5-19)
[2020-07-11 09:00] LABS: TROPONIN I < 0.012 ng/mL
--- NOTE | 2020-07-11 09:14 | Progress Note ---
Provider Note Provider Note: The risks, benefits and alternatives to NINA guided cardioversion were explained to the patient, his questions were asked and he verbalized his desire to proceed. He was given my personal cell number for him to call me should any questions arise.
[2020-07-11] MEDS: FAMOTIDINE 20 MG TABLET PO SCH (09:25)
[2020-07-11] MEDS: APIXABAN 5 MG TABLET PO SCH ×2 (09:25→17:29)
[2020-07-11] MEDS: DOCUSATE SODIUM 100 MG CAPSULE PO SCH ×2 (09:25→17:29)
--- NOTE | 2020-07-11 10:55 | PDOC DISCHARGE SUMMARY ---
Impression - Admit/DC Date/PCP Admission Date/Primary Care Provider: 07/10/20 20:26 Discharge Date: 07/11/20 - Discharge Diagnosis (1) New onset atrial flutter Is this a current diagnosis for this admission?: Yes (2) Atrial flutter with rapid ventricular response Is this a current diagnosis for this admission?: Yes (3) Elevated creatine kinase level Is this a current diagnosis for this admission?: Yes (4) Heart palpitations Is this a current diagnosis for this admission?: Yes - Assessment Summary: Patient will be admitted observation status on 10/23 supportive and symptomatic cares. Dr. Mich Siddiqi will be consulted for cardiology evaluation and treatment. Patient will receive Ativan 1 mg IV every 4 hours as needed for anxiety or restlessness. He will receive morphine sulfate 2 to 4 mg IV every 2 hours as needed for pain. He will be continued on Lopressor 25 mg p.o. every 6 hours and Eliquis 5 mg p.o. twice daily at the suggestion of Dr. Siddiqi. Dr. Siddiqi plans to cardiovert the patient once he has been stabilized on the aforementioned medical regimen. Patient will be treated with a cardiac diet. CBCs, metabolic profiles and additional laboratory and/or radiographic graphic evaluations will be obtained as needed. - Additional Information Resuscitation Status: Full Code Discharge Diet: Cardiac Discharge Activity: Activity As Tolerated Referrals: DOUGLAS SNOW MD [ACTIVE STAFF] - (Left message for follow up/noted in follow up appointment book. [facility]) MICH SIDDIQI MD [ACTIVE PROVISIONAL STAFF] - (Appointment request noted in Follow-up Book. [facility]) Prescriptions: Apixaban [Eliquis 5 mg Tablet] 5 mg PO BID #30 tablet Metoprolol Tartrate [Lopressor 50 mg Tablet] 50 mg PO Q12H #30 tablet Home Medications: Apixaban [Eliquis 5 mg Tablet] 5 mg PO BID #30 tablet 07/11/20 Melatonin [Melatonin 5 mg Tablet] 5 mg PO HSP PRN tablet 07/11/20 Metoprolol Tartrate [Lopressor 50 mg Tablet] 50 mg PO Q12H #30 tablet 07/11/20 History of Present Illiness History of Present Illness: VIVIAN MAKI is a 19 year old male who presented to the emergency room with a one-week history of heart palpitations. He admits suddenly developing palpitations of his heart after drinking a double shot of espresso 1 week ago. Palpitations have been constant since onset and have been accompanied by a rapid heart rate. He admits the palpitations have been mild until today where they have become somewhat more severe and his tachycardia has also worsened. He denies other associated or accompanying signs and symptoms. He denies prior similar episodes. He has not identified any additional aggravating or am eliorating factors for his palpitations. In the emergency room he was found to have atrial flutter/fibrillation and was treated with oral metoprolol and oral Eliquis at the direction of Dr. Mich Siddiqi who was consulted for cardiology evaluation by the emergency room physician. Patient was subsequently admitted observation status for further evaluation and treatment with Dr. Siddiqi providing cardiology consultation and therapy. Hospital Course Hospital Course: Brief hospital course. Rate controlled with metoprolol. Anticoagulation initiated. Patient will follow-up with cardiology for a NINA next week and cardioversion. Physical Exam Vital Signs: Temp Pulse Resp BP Pulse Ox 97.3 F 47 L 17 118/71 100 07/11/20 07:46 07/11/20 07:46 07/11/20 07:31 07/11/20 07:46 07/11/20 07:46 Intake & Output 07/10/20 07/11/20 07/12/20 06:59 06:59 06:59 Intake Total 1000 Balance 1000 Weight 78.2 kg General appearance: PRESENT: no acute distress, cooperative, well-developed Head exam: PRESENT: atraumatic, normocephalic Respiratory exam: PRESENT: clear to auscultation anna, symmetrical, unlabored. ABSENT: rales, rhonchi, tachypnea, wheezes Cardiovascular exam: PRESENT: irregular rhythm. ABSENT: bradycardia, diastolic murmur, systolic murmur, tachycardia GI/Abdominal exam: PRESENT: normal bowel sounds, soft. ABSENT: tenderness Rectal exam: PRESENT: deferred Gentrourinary exam: ABSENT: indwelling catheter Musculoskeletal exam: PRESENT: ambulatory. ABSENT: deformity, dislocation Neurological exam: PRESENT: alert, awake, oriented to person, oriented to place, oriented to time, oriented to situation, CN II-XII grossly intact Psychiatric exam: PRESENT: appropriate affect. ABSENT: agitated, anxious Focused psych exam: ABSENT: delusional, paranoid, restlessness Skin exam: PRESENT: dry, normal color, warm. ABSENT: rash Results Laboratory Results: WBC 5.1 10^3/uL (4.0-10.5) 07/11/20 07:55 RBC 5.00 10^6/uL (4.35-5.55) 07/11/20 07:55 Hgb 13.5 g/dL (13.5-17.0) 07/11/20 07:55 Hct 40.8 % (37.9-51.0) 07/11/20 07:55 MCV 82 fl (80-97) 07/11/20 07:55 MCH 26.9 pg (27.0-33.4) L 07/11/20 07:55 MCHC 33.0 g/dL (32.0-36.0) 07/11/20 07:55 RDW 13.5 % (11.5-14.0) 07/11/20 07:55 Plt Count 217 10^3/uL (150-450) 07/11/20 07:55 Lymph % (Auto) 45.3 % (13-45) H 07/10/20 16:41 [place] % (Auto) 7.3 % (3-13) 07/10/20 16:41 Eos % (Auto) 1.6 % (0-6) 07/10/20 16:41 Baso % (Auto) 1.7 % (0-2) 07/10/20 16:41 Absolute Neuts (auto) 2.7 10^3/uL (1.7-8.2) 07/10/20 16:41 Absolute Lymphs (auto) 2.8 10^3/uL (0.5-4.7) 07/10/20 16:41 Absolute Monos (auto) 0.4 10^3/uL (0.1-1.4) 07/10/20 16:41 Absolute Eos (auto) 0.1 10^3/uL (0.0-0.6) 07/10/20 16:41 Absolute Basos (auto) 0.1 10^3/uL (0.0-0.2) 07/10/20 16:41 Seg Neutrophils % 44.1 % (42-78) 07/10/20 16:41 D-Dimer < 0.27 ug/mL (0.00-0.50) 07/10/20 16:41 Sodium 139.3 mmol/L (137-145) 07/11/20 07:55 Potassium 4.7 mmol/L (3.6-5.0) 07/11/20 07:55 Chloride 106 mmol/L (98-107) 07/11/20 07:55 Carbon Dioxide 29 mmol/L (22-30) 07/11/20 07:55 Anion Gap 5 (5-19) 07/11/20 07:55 BUN 15 mg/dL (7-20) 07/11/20 07:55 Creatinine 0.99 mg/dL (0.52-1.25) 07/11/20 07:55 Est GFR ( Amer) > 60 (>60) 07/11/20 07:55 Est GFR (MDRD) Non-Af > 60 (>60) 07/11/20 07:55 Glucose 97 mg/dL (75-110) 07/11/20 07:55 Calcium 9.3 mg/dL (8.4-10.2) 07/11/20 07:55 Magnesium 1.8 mg/dL (1.6-2.3) 07/11/20 07:55 Total Bilirubin 0.6 mg/dL (0.2-1.3) 07/10/20 16:41 Direct Bilirubin 0.2 mg/dL (0.0-0.4) 07/10/20 16:41 Neonat Total Bilirubin Not Reportable 07/10/20 16:41 Neonat Direct Bilirubin Not Reportable 07/10/20 16:41 Neonat Indirect Bili Not Reportable 07/10/20 16:41 AST 29 U/L (17-59) 07/10/20 16:41 ALT 26 U/L (<50) 07/10/20 16:41 Alkaline Phosphatase 53 U/L (38-126) 07/10/20 16:41 Creatine Kinase 258 U/L (55-170) H 07/11/20 07:55 CK-MB (CK-2) 1.78 ng/mL (<4.55) 07/11/20 07:55 Troponin I < 0.012 ng/mL 07/11/20 07:55 Total Protein 7.1 g/dL (6.3-8.2) 07/10/20 16:41 Albumin 4.5 g/dL (3.5-5.0) 07/10/20 16:41 TSH 1.23 uIU/mL (0.47-4.68) 07/10/20 16:41 Free T4 0.91 ng/dL (0.78-2.19) 07/10/20 16:41 Urine Color YELLOW 07/10/20 18:38 Urine Appearance CLEAR 07/10/20 18:38 Urine pH 6.0 (5.0-9.0) 07/10/20 18:38 Ur Specific [place] 1.025 07/10/20 18:38 Urine Protein NEGATIVE mg/dL (NEGATIVE) 07/10/20 18:38 Urine Glucose (UA) NEGATIVE mg/dL (NEGATIVE) 07/10/20 18:38 Urine Ketones NEGATIVE mg/dL (NEGATIVE) 07/10/20 18:38 Urine Blood NEGATIVE (NEGATIVE) 07/10/20 18:38 Urine Nitrite NEGATIVE (NEGATIVE) 07/10/20 18:38 Urine Bilirubin NEGATIVE (NEGATIVE) 07/10/20 18:38 Urine Urobilinogen 2.0 mg/dL (<2.0) H 07/10/20 18:38 Ur Leukocyte Esterase NEGATIVE (NEGATIVE) 07/10/20 18:38 Urine WBC (Auto) 1 /HPF 07/10/20 18:38 Urine RBC (Auto) 0 /HPF 07/10/20 18:38 Urine Mucus (Auto) RARE /LPF 07/10/20 18:38 Urine Ascorbic Acid NEGATIVE (NEGATIVE) 07/10/20 18:38 Urine Opiates Screen NEGATIVE 07/10/20 18:38 Urine Methadone Screen NEGATIVE 07/10/20 18:38 Ur Barbiturates Screen NEGATIVE 07/10/20 18:38 Ur Phencyclidine Scrn NEGATIVE 07/10/20 18:38 Ur Amphetamines Screen NEGATIVE 07/10/20 18:38 U Benzodiazepines Scrn NEGATIVE 07/10/20 18:38 Urine Cocaine Screen NEGATIVE 07/10/20 18:38 U Marijuana (THC) Screen NEGATIVE 07/10/20 18:38 07/10/20 07/10/20 07/11/20 16:41 21:53 07:55 CK-MB (CK-2) 3.19 2.60 1.78 Troponin I < 0.012 < 0.012 < 0.012 Impressions: Chest X-Ray 07/10/20 16:40 IMPRESSION: NO ACUTE RADIOGRAPHIC FINDING IN THE CHEST. Plan Health Concerns: New onset atrial flutter with rapid ventricular response in a 19-year-old patient Plan of Treatment: Beta-blockers and anticoagulants. Follow-up for NINA and possible cardioversion next week. Goals: Conversion to normal sinus rhythm. Also try to identify etiology of this episode with appropriate treatment Time Spent: Greater than 30 Minutes Stroke Is this a Stroke Patient?: No Acute Heart Failure - Is this a Heart Failure Patient?: No
[2020-07-11 13:57] LABS: CREATINE KINASE MB 1.66 ng/mL (<4.55)
[2020-07-11 14:01] LABS: TROPONIN I < 0.012 ng/mL
--- NOTE | 2020-07-11 15:15 | EKG REPORT ---
SEVERITY:- ABNORMAL ECG - ATRIAL FIBRILLATION FLUTTER VENTRIICULAR PREMATURE COMPLEX INCOMPLETE RIGHT BUNDLE BRANCH BLOCK ST DEPRESSION, CONSIDER ISCHEMIA, INF LEADS : Confirmed by: Dustin Klein MD 11-Jul-2020 15:14:53
--- NOTE | 2020-07-11 15:17 | EKG REPORT ---
SEVERITY:- ABNORMAL ECG - ATRIAL FIBRILLATION - FLUTTER WITH RVR 117 : Confirmed by: Dustin Klein MD 11-Jul-2020 15:16:45
[2020-07-11 17:38] VITALS: BP 137/62
--- NOTE | 2020-07-12 00:38 | XCELERA REPORT ---
[address] [address] Transthoracic Echocardiogram Report Name: VIVIAN MAKI Age: 19 yrs Gender: Male : 2000 Patient Status: Inpatient Patient Location: [address] [place] [address] Study Date: 07/11/2020 01:15 PM Height: 71 in Weight: 170 lb BSA: 2.0 m2 Procedure: A complete two-dimensional transthoracic echocardiogram was performed (2D, M-mode, spectral and color flow Doppler). Study Quality: Technically adequate. Reason For Study: atrial flutter Ordering Physician: MICH MADRID Performed By: Alejandra Dan Interpretation Summary The left ventricle is grossly normal size. LV systolic function is difficult to assess due to atrial fibrillation. Left ventricular systolic function is low normal. The Ejection Fraction estimate is 45-50%. LV diastolic function could not be adequately assessed due to atrial fibrilation. There is borderline global hypokinesis of the left ventricle. There is no thrombus. LV diastolic function could not be adequately assessed due to atrial fibrilation. Trace TR, mild PI. No prior studies for comparison. MMode/2D Measurements & Calculations RVDd: 2.6 cm LVIDd: 4.5 cm FS: 25.3 % Ao root diam: 2.7 cm IVSd: 1.2 cm LVIDs: 3.4 cm EDV(Teich): 94.3 ml Ao root area: 5.7 cm2 LVPWd: 1.1 cm ESV(Teich): 47.2 ml EF(Teich): 50.0 % Doppler Measurements & Calculations MV E max dmitry: MV dec slope: Ao V2 max: LV V1 max P.6 cm/sec 536.5 cm/sec2 116.0 cm/sec 3.2 mmHg MV A max dmitry: MV dec time: 0.18 secAo max P.4 mmHgLV V1 max: 51.9 cm/sec 88.9 cm/sec MV E/A: 1.8 PA V2 max: PI end-d dmitry: TR max dmitry: 60.7 cm/sec 111.5 cm/sec 213.8 cm/sec PA max P.5 mmHg TR max P.4 mmHg Left Ventricle The left ventricle is grossly normal size. LV systolic function is difficult to assess due to atrial fibrillation. Left ventricular systolic function is low normal. The Ejection Fraction estimate is 45-50%. LV diastolic function could not be adequately assessed due to atrial fibrilation. There is borderline global hypokinesis of the left ventricle. There is no thrombus. Right Ventricle The right ventricle is normal size. The right ventricular systolic function is normal. Atria The right atrium is normal. The left atrial size is normal. The interatrial septum is intact with no evidence for an atrial septal defect. Mitral Valve The mitral valve is normal in structure and function. There is no mitral regurgitation noted. Aortic Valve The aortic valve is normal in structure and functions normally. No aortic regurgitation is present. Tricuspid Valve The tricuspid is normal in structure and function. There is a trace amount of tricuspid regurgitation. Pulmonic Valve The pulmonic valve is normal in structure and function. There is a mild amount of pulmonic regurgitation. Effusions There is no pericardial effusion. There is no pleural effusion. : MICH MADRID Antonio
== END 2020-07-11 18:10 | disposition home or self-care (01) ==
LOC: ER 16:15 → EH 20:26 → 5 23:11
PROVIDERS: ADMIT Emergency Medicine; ATTEND Hospitalist
DX: I48.92 Unspecified atrial flutter (principal); I48.91 Unspecified atrial fibrillation; R74.8 Abnormal levels of other serum enzymes; I44.39 Other atrioventricular block; Z82.49 Family history of ischemic heart disease and other diseases of the circulatory system
CPT/HCPCS: 93005 ×2; 96376; 99291; 96361; 96374; 36415 ×2; 84439; 82553 ×2; 82550 ×2; 83735; 84443; 85025; 85027; 80048; 80053; 81001; 84484 ×2; 80307; 85379; 93306; 71045; 93010 ×2; G0378 ×3; J3490 ×2; J7121; J7030; J0153

== ENCOUNTER → 2020-07-21 | Day surgery (SDC) | payer OTHER ==
[~2020-07-21] MED LIST: PROPOFOL INJ 200 MG/20 ML VIAL IV ONE
--- NOTE | 2020-07-21 13:48 | PDOC CONSULTATION ---
Consultation Consult Date: 07/21/20 Provider Consulted: PAYAM DING Consult reason:: Consulted for NINA guided cardioversion History of Present Illness Patient complains of: Palpitations History of Present Illness: VIVIAN MAKI is a 19 year old male Who was admitted to the hospital recently On 07/10/2020. He presented with 1 week of palpitations after having had consumed a double shot of espresso. No other precipitating factors for this arrhythmia were documented. He was admitted to hospital and was started on rate control medications. Diagnosis of atrial flutter with variable AV conduction was documented by Dr. Siddiqi. Dr. Siddiqi followed the patient for rate control measures. He asked me to help coordinate transesophageal echocardiogram guided cardioversion Patient mentions no prior cardiac history whatsoever. Her mom endorses the fact that patient consumed excess caffeine which is thought to have precipitated the arrhythmia. No other recreational drug use is reported. Patient presently does not report any chest pain. Review of systems positive for palpitations. Full 11 review of systems was asked. Pertinent positives noted in the HPI all other systems are negative. There is no reported substance abuse. No familial illnesses reported. Past Medical History Cardiac Medical History: Denies: Atrial Fibrillation, Coronary Artery Disease, DVT, Myocardial Infarction, Hypertension, Pulmonary Embolism Pulmonary Medical History: Denies: Asthma, Bronchitis, Chronic Obstructive Pulmonary Disease (COPD), Pneumonia Neurological Medical History: Denies: Migraine, Seizures Endocrine Medical History: Denies: Diabetes Mellitus Type 1, Diabetes Mellitus Type 2, Hyperthyroidism, Hypothyroidism GI Medical History: Denies: Cirrhosis, Hepatitis Musculoskeltal Medical History: Denies: Arthritis, Gout Skin Medical History: Denies: Eczema, Psoriasis Psychiatric Medical History: Denies: Depression Hematology: Denies: Anemia, Bleeding Tendencies Social History Smoking Status: Never Smoker Frequency of Alcohol Use: None Hx Recreational Drug Use: No Drugs: None Hx Prescription Drug Abuse: No Family History Family History: DM, Hypertension. denies: CAD, Malignancy Parental Family History Reviewed: Yes - No familial illnesses Children Family History Reviewed: NA Sibling(s) Family History Reviewed.: NA Medication/Allergy Home Medications: Apixaban [Eliquis 5 mg Tablet] 5 mg PO BID #30 tablet 07/11/20 Metoprolol Tartrate [Lopressor 50 mg Tablet] 50 mg PO Q12H #30 tablet 07/11/20 Allergies/Adverse Reactions: No Known Allergies Allergy (Verified 07/10/20 17:19) Review of Systems Constitutional: PRESENT: as per HPI Eyes: PRESENT: as per HPI Cardiovascular: PRESENT: as per HPI, palpitations Gastrointestinal: ABSENT: as per HPI, abdominal pain, bloating, coffee ground emesis, constipation, diarrhea, dysphagia, heartburn, hematemesis, hematochezia, melena, nausea, vomiting, other Genitourinary: ABSENT: as per HPI, difficulty urinating, dysuria, hematuria, nocturia, other Neurological: ABSENT: as per HPI, abnormal gait, abnormal movements, abnormal speech, confusion, convulsions, dizziness, focal weakness, frequent falls, lack of coordination, memory loss, numbness, paresthesias, restless legs, syncope, tingling, tremor(s), vertigo, weakness, other Physical Exam Vital Signs: Temp Pulse Resp BP Pulse Ox 97.8 F 103 H 17 116/71 99 07/21/20 11:10 07/21/20 11:10 07/21/20 11:10 07/21/20 11:10 07/21/20 11:10 Intake & Output 07/20/20 07/21/20 07/22/20 06:59 06:59 06:59 Intake Total 0 Balance 0 Weight 78 kg General appearance: PRESENT: no acute distress, cooperative, well-developed, well-nourished Head exam: PRESENT: atraumatic, normocephalic Eye exam: PRESENT: conjunctiva pink, EOMI Mouth exam: PRESENT: neck supple Respiratory exam: PRESENT: symmetrical, unlabored Cardiovascular exam: PRESENT: irregular rhythm, +S1, +S2 Pulses: PRESENT: normal radial pulses GI/Abdominal exam: PRESENT: soft Rectal exam: PRESENT: deferred Musculoskeletal exam: PRESENT: normal inspection Neurological exam: PRESENT: alert, awake, oriented to person, oriented to place, oriented to time, oriented to situation Psychiatric exam: PRESENT: appropriate affect Skin exam: PRESENT: dry, intact Results EKG Comments: Twelve-lead EKG reviewed independently by me. 07/10/2020 Atrial flutter with ventricular rate 143 bpm. Twelve-lead EKG 07/10/2020 Atrial flutter ventricular rate 137 bpm Telemetry strips continue to show atrial flutter with variable AV conduction. Transthoracic echocardiogram 07/11/2020 Left ventricular ejection fraction estimated at 45 to 50% Trace tricuspid regurgitation. No mitral regurgitation RV systolic function is normal Twelve-lead EKG 07/11/2020 Atrial flutter ventricular rate 72 bpm, partial right bundle branch block Telemetry 07/21/2020 atrial flutter with variable ventricular rate Assessment & Plan - Diagnosis (1) Atrial flutter Qualifiers: Atrial flutter type: typical Qualified Code(s): I48.3 - Typical atrial flutter Is this a current diagnosis for this admission?: Yes Plan: Atrial flutter-new onset Based on discussion with Dr. Siddiqi we have decided to pursue NINA guided cardioversion Procedure of transesophageal echocardiogram was explained in great detail. Risks include aspiration, reaction to any of the medications used during anesthesia, risk of esophageal trauma, mucosal injury and perforation which is quite rare. There is no left atrial appendage thrombus we will proceed with cardioversion. Risk of cardioversion include potential for skin valdez or skin irritation, other arrhythmias could be precipitated, small risk of stroke exist I have affirmed with the patient that patient has been on uninterrupted systemic anticoagulation since the initial diagnosis of atrial flutter upon admission to the hospital. The mother was present and all questions were answered.
--- NOTE | 2020-07-21 13:50 | Progress Note ---
Provider Note Provider Note: DIRECT CURRENT CARDIOVERSION Date : July 21, 2020 Procedure: Direct current cardioversion Anesthesia: General anesthesia Indication: Atrial flutter with rapid ventricular response Clinical history: 19-year-old male who had presented with symptomatic atrial flu tter with rapid ventricular response to the hospital approximately 2 weeks before. He was started on rate control measures and on systemic oral anticoagulation with plans to perform NINA guided cardioversion by Dr. Siddiqi. He presents today for the same. No change in symptoms. I have affirmed with the mother that patient has continuously been on systemic anticoagulation without interruption. PROCEDURE The patient was brought to the holding area fasting and nonsedated state. Informed consent was obtained prior to the procedure. General anesthesia was administered. Please see anesthesia notes for medication details. Patient's presenting rhythm was atrial flutter with rapid ventricular response. The patient's EKG and vital signs were monitored throughout. Transesophageal echocardiogram was initially performed which showed preserved left ventricular ejection fraction and no left atrial appendage thrombus. There was no significant valve lesion. There was no pericardial effusion. Once the patient was comfortably sedated a single direct current biphasic 200 J shock was administered across defibrillator patches applied in anteroposterior fashion across the chest. This resulted in prompt rastafarian of sinus rhythm with frequent premature atrial complexes. The patient tolerated the procedure well. Conclusion Successful conversion of atrial flutter to sinus rhythm Plan Continue systemic anticoagulation-apixaban 5 mg twice daily without interruption
--- NOTE | 2020-07-21 13:53 | Discharge Summary ---
Discharge Summary (SDC) - Discharge Final Diagnosis: Atrial flutter with rapid ventricular response Condition: Stable Forms: EU Anesthesia D/C Instructions, Discharge POC-Surgical Service Treatment or Instructions: NO DRIVING TODAY, INCREASE DIET TOLERATED, NO ACTIVITIES THAT REQUIRE CONCENTRATION, NO IMPROTANT DECISION MAKING , KEEP SCHEDULED APPOINTMENTS, CALL [facility] FOR ANY CONCERNS Referrals: PAYAM DING MD [ACTIVE STAFF] - Discharge Activity: Activity As Tolerated, No Driving Home Care Assistance: None Needed Report the Following to Your Physician Immediately: Shortness of Breath, Nausea, Vomiting, Increase in Pain
[2020-07-21 14:08] VITALS: BP 106/70
--- NOTE | 2020-07-21 14:27 | XCELERA REPORT ---
Study ID: [id number] [address] [id number] Transesophageal Echocardiogram Report Name: VIVIAN MAKI Age: 19 yrs Gender: Male : 2000 Patient Status: Outpatient Patient Location: [facility] Study Date: 07/21/2020 11:30 AM Height: 71 in Weight: 171 lb BSA: 2.0 m2 Reason For Study: AFIB Ordering Physician: PAYAM DING Performed By: Alejandra Dan Interpretation Summary This degree of valvular regurgitation is within normal limits. Left ventricular systolic function is normal. Ejection Fraction = >55%. The right ventricle is normal in size and function. This degree of valvular regurgitation is within normal limits. No thrombus is detected in the left atrial appendage. There is no pericardial effusion. Procedure A complete two-dimensional transesophageal echocardiogram was performed (2D, spectral and color flow Doppler). Informed consent for Transesophageal Echocardiogram, and use of a contrast agent as needed, was obtained prior to the procedure. The patient was brought to the Floor 5 in a fasting state. An intravenous line was placed. A topical anesthetic agent was used for oropharangeal anesthesia. A bite block was inserted. IV conscious sedation was administered using per Anesthesia team. The patient's vital signs, including blood pressure, heart rate, pulse oximetry and cardiac rhythm were monitored thoughout the procedure. The transesophageal probe was passed without difficulty. The usual views were obtained; basal, mid-esophageal, transgastric and aortic views. The patient tolerated the procedure well without evidence of orophangeal or esophageal trauma. Subsequent to all the images being obtained the probe was removed with out trauma. Left Ventricle The left ventricle is normal in size. There is no thrombus. There is normal left ventricular wall thickness. Left ventricular systolic function is normal. Ejection Fraction = >55%. No regional wall motion abnormalities noted. Right Ventricle The right ventricle is normal in size and function. Atria The left atrial size is normal. No thrombus is detected in the left atrial appendage. Right atrial size is normal. Mitral Valve The mitral valve is normal in structure and function. There is no mitral valve stenosis. There is trace mitral regurgitation. Tricuspid Valve The tricuspid valve is normal in structure and function. There is no tricuspid stenosis. There is trace tricuspid regurgitation. Aortic Valve The aortic valve is normal in structure and function. The aortic valve opens well. No hemodynamically significant valvular aortic stenosis. No aortic regurgitation is present. Pulmonic Valve The pulmonic valve is not well visualized. Arteries The aortic root is not well visualized but is probably normal size. Pericardium There is no pericardial effusion. : PAYAM DING Anil
--- NOTE | 2020-07-21 17:26 | EKG REPORT ---
SEVERITY:- NORMAL ECG - SINUS RHYTHM : Confirmed by: Anthony Garcia 21-Jul-2020 17:25:25
== END ==
LOC: END 10:12
PROVIDERS: ATTEND Internal Medicine
DX: I48.91 Unspecified atrial fibrillation (principal)
CPT/HCPCS: 93312; 93325; 87635; 93005; 93010; 01922; J2704; C9803; 1922